=== PATIENT | female | born 1985 | race Caucasian/White ===

== ENCOUNTER 2024-03-06 02:04 | Emergency (ER) | payer BC ==
[~2024-03-06] VITALS: Ht 182.9 cm; Wt 78.0 kg
[2024-03-06 02:22] VITALS: BP 102/57; PULSE 71; RESP 16; TEMP 98.2; O2SAT 99
[2024-03-06] MEDS ORDERED: MAGNESIUM/ALUMINUM HYDROXIDE/SIMETHICONE 30ML UDC PO ONE (03:45)
[2024-03-06] MEDS ORDERED: METOCLOPRAMIDE HCL 10MG TABLET PO ONE (03:45)
== END 2024-03-06 03:46 | disposition left against medical advice (07) ==
LOC: ER 02:04
DX: R07.89 Other chest pain (principal)
CPT/HCPCS: 71045; 99283